=== PATIENT | female | born 1975 | race Hispanic/Latino ===

== ENCOUNTER 2017-03-27 21:57 | Emergency (ER) | payer SELFPAY ==
[2017-03-27 22:03] VITALS: BP 147/89; PULSE 129; RESP 18; TEMP 98.1; O2SAT 97
--- NOTE | 2017-03-27 22:22 | ED PDOC ---
HPI: Psych/Substance Abuse Time Seen by Provider: 03/27/17 22:10 Chief Complaint (Nursing): Alcohol Ingestion Chief Complaint (Provider): alcohol intoxication History Per: Patient, EMS History/Exam Limitations: no limitations Additional Complaint(s): Miriam Austin is a 41 y/o female presenting to the ER on 2016 via EMS for alcohol intoxication. Per EMS, patient was found leaning on a building appearing intoxicated, prompting EMS to bring her in for evaluation. Patient admits to drinking a lot of alcohol today. She denies any medical or physical complaints at this time. Rest of HPI/ROS is limited due to patient's state of intoxication. Past Medical History Reviewed: Historical Data, Nursing Documentation, Vital Signs Vital Signs: Last Vital Signs Temp 98.1 F 03/27/17 22:01 Pulse 129 H 03/27/17 22:01 Resp 18 03/27/17 22:01 BP 147/89 03/27/17 22:01 Pulse Ox 97 03/27/17 22:01 - Medical History PMH: No Chronic Diseases - Surgical History Surgical History: No Surg Hx - Family History Family History: States: Unknown Family Hx - Social History Current smoker - smoking cessation education provided: No Alcohol: Occasional Drugs: Denies - Allergies Allergies/Adverse Reactions: Allergies Allergy/AdvReac Type Severity Reaction Status Date / Time Unobtainable Allergy Verified 03/27/17 22:01 Review of Systems Review Of Systems: ROS cannot be obtained secondary to pt's inabilty to answer questions. Physical Exam - Reviewed Nursing Documentation Reviewed: Yes Vital Signs Reviewed: Yes - Physical Exam Appears: Positive for: No Acute Distress. Negative for: Uncomfortable (pt is comfortable ) Head Exam: Positive for: ATRAUMATIC, NORMOCEPHALIC Skin: Positive for: Normal Color. Negative for: Rash Eye Exam: Positive for: Normal appearance, EOMI, PERRL Neck: Positive for: Normal, Painless ROM, Supple Cardiovascular/Chest: Positive for: Regular Rate, Rhythm. Negative for: Murmur Respiratory: Positive for: Normal Breath Sounds. Negative for: Wheezing, Respiratory Distress Gastrointestinal/Abdominal: Positive for: Normal Exam, Soft. Negative for: Tenderness Extremity: Positive for: Normal ROM. Negative for: Deformity, Swelling Neurologic/Psych: Positive for: Alert, Oriented, Gait (unsteady ), Other ( slurred speech ). Negative for: Motor/Sensory Deficits - ECG O2 Sat by Pulse Oximetry: 97 - Progress Re-evaluation Time: 01:43 Condition: Re-examined, Improved Medical Decision Making Medical Decision Makin:10 Initial Impression- Alcohol Intoxication Initial Plan- * Alcohol Serum * ED OBS Pt will be placed under ED Observation. See ED OBS for further progress Pt is alert awake ambulatory with steady gait. Documented by Collins Humphreys, acting as a scribe for Prem Roblero MD. All medical record entries made by the Scribe were at my direction and personally dictated by me. I have reviewed the chart and agree that the record accurately reflects my personal performance of the history, physical exam, medical decision making, and the department course for this patient. I have also personally directed, reviewed, and agree with the discharge instructions and disposition. ED OBSERVATION Date of observation admission: 03/27/17 - Observation admission statement Patient is being placed in observation because:: Pt is clinically intoxicated - Goals of Observation Goals of observation are:: Clinical sobriety, re-evaluation, and final disposition. Disposition - Clinical Impression Clinical Impression: Alcohol abuse with intoxication - Patient ED Disposition Is Patient to be Admitted: No Doctor Will See Patient In The: Office Counseled Patient/Family Regarding: Studies Performed, Diagnosis, Need For Followup - Disposition Referrals: [facility] [Outside] Disposition: Routine/Home Disposition Time: 01:46 Condition: GOOD Additional Instructions: Follow up with your PCP in 2-3 days. Instructions: Alcohol Intoxication (ED)
== END 2017-03-28 02:29 | disposition home or self-care (01) ==
LOC: H.ER 21:57
DX: F10.129 Alcohol abuse with intoxication, unspecified (principal)
CPT/HCPCS: 81025; 99281; G0480

== ENCOUNTER 2018-04-04 00:29 | Emergency (ER) | payer BC ==
[2018-04-04 00:33] VITALS: RESP 16
--- NOTE | 2018-04-04 02:30 | ED PDOC ---
HPI: Psych/Substance Abuse Time Seen by Provider: 04/04/18 00:34 Chief Complaint (Nursing): Alcohol Ingestion Chief Complaint (Provider): Alcohol Ingestion History Per: Patient History/Exam Limitations: no limitations Modifying Factor(s): Alcohol Additional Complaint(s): 42 year old female brought in by police presents to ED due to alcohol ingestion. Patient admits to drinking and denies any complaints. (-) abdominal pain, N/V, trauma, injury, or fall. Patient has no medical or psychiatric complaints. Patient states that she wants to go home. Past Medical History Reviewed: Historical Data, Nursing Documentation, Vital Signs Vital Signs: Last Vital Signs Temp 97.5 F L 04/04/18 00:30 Pulse 115 H 04/04/18 00:30 Resp 16 04/04/18 00:30 BP 155/100 H 04/04/18 00:30 Pulse Ox 97 04/04/18 00:30 - Medical History PMH: No Chronic Diseases - Family History Family History: States: Unknown Family Hx - Social History Alcohol: Social - Allergies Allergies/Adverse Reactions: Allergies Allergy/AdvReac Type Severity Reaction Status Date / Time Unobtainable Allergy Verified 03/27/17 22:01 Review of Systems ROS Statement: Except As Marked, All Systems Reviewed And Found Negative ( Denies all medical complaints) Physical Exam - Reviewed Nursing Documentation Reviewed: Yes Vital Signs Reviewed: Yes - Physical Exam Comments: GENERAL APPEARANCE: Patient is awake, alert, oriented x 3, in no acute distress. Alcohol on breath. SKIN: Warm, dry; (-) cyanosis HEAD: (-) scalp swelling, (-) scalp tenderness. EYES: (-) conjunctival pallor, (-) scleral icterus, (-) nystagmus, (+) mild injection bilaterally. ENMT: Mucous membranes moist. Airway patent: (-) stridor. NECK: (-) tenderness, (-) stiffness, (-) lymphadenopathy. CHEST AND RESPIRATORY: (-) rales, (-) rhonchi, (-) wheezes; breath sounds equal. ABDOMEN: Soft, (-) distention, (-) tenderness, (-) guarding. NEURO AND PSYCH: Mental status as above.roving or yarn color checker: Intact. Pupils equal and reactive; EOMI; (-) facial asymmetry; tongue and uvula midline. Strength symmetric. Gait steady. - ECG O2 Sat by Pulse Oximetry: 97 (RA) Pulse Ox Interpretation: Normal Medical Decision Making Medical Decision Makin Initial impression: alcohol ingestion Initial plan: * Observation 0230 Patient was observed in the ED for 2 hours. Upon re-evaluation, patient states she wants to go home. Patient is able to ambulate steadily with no tremors or slurred speech. Patient confirms she is able to pay for a taxi and one was called for her. HESHAM and ED RN escorted patient to taxi. Advised to follow up with primary care physician in 1-2 days without fail. Return to the emergency room at any time for any new or worsening symptoms. Patient states she fully agrees with and understands discharge instructions. States that she agrees with the plan and disposition. Verbalized and repeated discharge instructions and plan. I have given the patient opportunity to ask any additional questions. Dx: alcohol intoxication Scribe Attestation: Documented by Salina Dillon acting as a scribe for Cathie Nelson PA-C. Scribe Attestation: All medical record entries made by the Scribe were at my direction and personally dictated by me. I have reviewed the chart and agree that the record accurately reflects my personal performance of the history, physical exam, medical decision making, and the department course for this patient. I have also personally directed, reviewed, and agree with the discharge instructions and disposition. Disposition - Clinical Impression Clinical Impression: Alcohol intoxication - Patient ED Disposition Is Patient to be Admitted: No Counseled Patient/Family Regarding: Diagnosis, Need For Followup - Disposition Disposition: Routine/Home Disposition Time: 02:30 Condition: STABLE Instructions: Alcohol Abuse and Alcoholism (DC) Forms: [employer] ([place]ian) - PA / FUR FINISHER TAILOR / Resident Statement MD/DO has reviewed & agrees with the documentation as recorded.
[2018-04-04 02:45] VITALS: BP 133/76; PULSE 78; TEMP 98.2
[2018-04-04 03:12] VITALS: O2SAT 97
== END 2018-04-04 02:45 | disposition home or self-care (01) ==
LOC: H.ER 00:29
DX: F10.129 Alcohol abuse with intoxication, unspecified (principal)